=== PATIENT | male | born 1990 ===

== ENCOUNTER 2016-10-11 10:05 | Emergency (ER) | payer MEDICAID ==
[2016-10-11] MEDS ORDERED: Lidocaine 1% MPF* 2 ML VIAL INJ ONE (10:37)
--- NOTE | 2016-10-11 10:44 | UC ---
Skin Complaint HPI - HPI Summary HPI Summary: 1) Painful lump on R buttock starting a few days ago. Has been poking the area, covering with triple abx ointment, and taking leftover erythromycin without relief. Denies fever or drainage. 2) Scaly, dry, itchy slowly spreading rash on R hand, back/buttock, bilat feet and ankles. Has responded to oral & topical antifungals in the past, but has been there for 5 years or more and cannot seem to kick the infection. - History of Current Complaint Chief Complaint: UCSkin Time Seen by Provider: 10/11/16 10:25 Stated Complaint: SKIN COMPLAINT Hx Obtained From: Patient Onset/Duration: Gradual Onset, Lasting Days Timing: Constant Onset Severity: Mild Current Severity: Moderate Location: Discrete Character: Pain, Redness, Raised Aggravating: Touch Alleviating: Nothing Associated Signs & Symptoms: Positive: Rash. Negative: Syncope, Drainage - Allergy/Home Medications Allergies/Adverse Reactions: Allergies Allergy/AdvReac Type Severity Reaction Status Date / Time No Known Allergies Allergy Verified 10/11/16 10:19 Review of Systems Constitutional: Negative Skin: Rash, Other - painful lump Eyes: Negative ENT: Negative Respiratory: Negative Cardiovascular: Negative Gastrointestinal: Negative Genitourinary: Negative Motor: Negative Neurovascular: Negative Musculoskeletal: Negative Neurological: Negative Psychological: Negative All Other Systems Reviewed And Are Negative: Yes PMH/Surg Hx/FS Hx/Imm Hx - Additional Past Medical History Additional PMH: hx of chronic tinea infection on hands/feet - Surgical History Surgical History: None - Family History Known Family History: Negative: Blood Disorder - Social History 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 Alcohol Use: None Substance Use Type: None Smoking Status (MU): Heavy Every Day Tobacco Smoker Amount Used/How Often: 1 ppd Physical Exam Triage Information Reviewed: Yes Appearance: Well-Appearing, No Pain Distress, Well-Nourished Vital Signs: Initial Vital Signs Temp 99.2 F 10/11/16 10:20 Pulse 66 10/11/16 10:20 Resp 16 10/11/16 10:20 BP 111/71 10/11/16 10:20 Pulse Ox 98 10/11/16 10:20 Vital Signs Reviewed: Yes Eye Exam: Normal Eyes: Positive: Conjunctiva Clear ENT Exam: Normal ENT: Positive: Normal ENT inspection, Hearing grossly normal, Pharynx normal, TMs normal Dental Exam: Normal Neck exam: Normal Neck: Positive: Supple Respiratory Exam: Normal Respiratory: Positive: Chest non-tender, Lungs clear, Normal breath sounds, No respiratory distress, No accessory muscle use Cardiovascular Exam: Normal Cardiovascular: Positive: RRR, No Murmur Musculoskeletal Exam: Normal Neurological Exam: Normal Neurological: Positive: Alert Psychological Exam: Normal Skin Exam: Other - 2cm raised abscess R buttock, no cellulitis. Also R hand, bilat ankles/feet, low back and buttocks covered in scaly, hypopigmented, well- demarcated rash Course/Dx - Diagnoses Provider Diagnoses: R buttock abscess I&D. tinea corporis Discharge - Discharge Plan Condition: Stable Disposition: HOME Patient Education Materials: Abscess (ED), Warm Compress or Soak (ED), Tinea Corporis (ED) Forms: *Work Release Referrals: Ludwig Banegas MD [Primary Care Provider] - Avinash Chua MD [Medical Doctor] - 2 Weeks Additional Instructions: Because your fungal infection has been so extensive for so many years, I recommend you see a stone decorator to ensure that it clears up. If not, at least see your primary care office for a recheck in 2-3 weeks.
--- NOTE | 2016-10-12 08:28 | UC ---
Progress - Progress Note Progress Note: 10/12/16 @08:25. wound culture is positive for MRSA and S. Aureus. the sensitivity is pending. Will follow up when sensitivity is finalized.
== END 2016-10-11 11:08 | disposition home or self-care (01) ==
LOC: UCEAST 10:05
DX: L02.31 Cutaneous abscess of buttock (principal); B35.4 Tinea corporis; F17.210 Nicotine dependence, cigarettes, uncomplicated
CPT/HCPCS: 10060; 87070; 87077; 87186; 87205; 87640; 87641; 99202; G0463